=== PATIENT | female | born 1960 ===

== ENCOUNTER 2024-10-29 06:25 | Day surgery (SDC) | payer OTHER ==
[2024-10-23 07:20] LABS: HEMATOCRIT 43.9 % (36.0-45.00); HEMOGLOBIN 14.7 g/dL (12.0-15.00); MEAN CELL VOLUME 85.1 fL (80.00-100.00); MEAN CORPUSCULAR HEMOGLOBIN 28.5 pg (27.00-32.0); MEAN CORPUSCULAR HGB CONC 33.5 g/dl (32.0-36.0); PLATELET COUNT 264 K/uL (150-450); RED BLOOD COUNT 5.16 M/uL (4.00-6.00); RED CELL DISTRIBUTION WIDTH 14.2 % (11.5-14.5)
[2024-10-23 07:23] LABS: URINE APPEARANCE Clear; URINE BILIRRUBIN Negative (NEGATIVE); URINE BLOOD Trace; URINE COLOR Yellow; URINE KETONE Negative (NEGATIVE); URINE LEUKOCYTE Negative; URINE NITRATE Negative; URINE PROTEIN Negative (NEGATIVE); URINE UROBILINOGEN 0.2 E.U./dl
[2024-10-23 07:29] LABS: URINE BACTERIA 52.8 uL (0.0-1933); URINE EPITHELIAL CELLS 3.6 uL (0.0-38.8); URINE WBC 3.8 uL (0.0-23.2)
[2024-10-23 07:41] LABS: URINE GLUCOSE >=1000 MG/DL (NEGATIVE); URINE RBC 1.8 uL (0.0-20.8)
[2024-10-23 08:05] LABS: INR 1.01; PARTIAL THROMBOPLASTIN TIME 24.7 SECONDS (22.0-34.0)
[2024-10-23 08:15] LABS: BILIRUBIN TOTAL 0.44 mg/dL (0.3-1.2); CALCIUM 9.7 mg/dL (8.5-10.1); CREATININE SERUM 0.78 mg/dL (0.55-1.02); GFR 74.59; GLOBULINA 3.5 G/DL (2.4-3.5); POTASSIUM 4.2 mEq/L (3.5-5.1); TOTAL PROTEIN 7.5 gm/dL (6.4-8.2)
[2024-10-23 08:37] VITALS: BP 139/82
[~2024-10-29 06:25] MED LIST: NIFEDIPINE 40 MG; SIMVASTATIN40 MG; SYMBICORT 16010.2 GM; SYNJARDY 12.5-1 EACH; TOPROL XL50 M1; TRULICITY0.75 MG/0.; ZESTRIL40 M1; ZETIA10 MG
[2024-10-29] MEDS ORDERED: CEFAZOLIN SODIUM 1,000 MG VIAL IV ONE (11:00)
[2024-10-29] MEDS ORDERED: BUPIVACAINE HCL 30 ML VIAL IJ ONE (11:15)
== END 2024-10-29 12:05 | disposition home or self-care (01) ==
LOC: CIR.AMB 06:25
PROVIDERS: ATTEND Orthopaedic Surgery Hand Surgery
DX: M65.331 Trigger finger, right middle finger (principal)